=== PATIENT | female | born 1995 | race African-American/Black ===

== ENCOUNTER 2020-10-06 08:41 | Emergency (ER) | payer OTHER ==
[~2020-10-06] VITALS: Ht 170.2 cm; Wt 60.0 kg
[2020-10-06] MEDS ORDERED: MORPHINE SULFATE 4 MG/ML CPJ (NOT FOR IM USE) IV STA (08:54)
[2020-10-06] MEDS ORDERED: ONDANSETRON HCL 4MG/2ML INJ IV STA (08:54)
[2020-10-06] MEDS ORDERED: SODIUM CHLORIDE 0.9% 1,000 ML IV ONE (09:00)
[2020-10-06] MEDS ORDERED: LORAZEPAM 2MG/ML CPJ IV ONE (09:00)
[2020-10-06 09:30] LABS: BASOPHILS % 0.5 % (0.0-2.0); HEMATOCRIT. 38.7 % (36.0-48.0); LYMPHOCYTES % 47.2 % (20.0-50.0); MEAN CORPUSCULAR HEMOGLOBIN 32.9 pg (28.0-32.0); MEAN CORPUSCULAR VOLUME 98.2 fL (81.0-99.0); MEAN PLATELET VOLUME 8.2 fl (7.4-10.4); MONOCYTES % 7.5 % (2.0-8.0); NEUTROPHILS % 43.8 % (40.0-76.0); PLATELET 236 x1000/uL (130-400); RED BLOOD CELL COUNT 3.94 mill/uL (4.2-5.4); RED CELL DISTRIBUTION WIDTH 14.3 % (11.6-14.6)
[2020-10-06 09:36] LABS: CHLORIDE 105 mEq/L (98-107)
[2020-10-06 09:41] LABS: ETHANOL BLOOD < 10 mg/dL
[2020-10-06 09:43] LABS: HCG SCREEN NEGATIVE
[2020-10-06] MEDS ORDERED: MORPHINE SULFATE 4 MG/ML CPJ (NOT FOR IM USE) IV ONE (10:15)
[2020-10-06] MEDS ORDERED: KETOROLAC 30MG/ML VIAL IV ONE (10:15)
[2020-10-06 10:41] VITALS: BP 134/76
== END 2020-10-06 10:58 | disposition left against medical advice (07) ==
LOC: ER 08:41
DX: R07.9 Chest pain, unspecified (principal); M41.9 Scoliosis, unspecified
CPT/HCPCS: 36415; 71045; 80053; 80320; 83690; 83880; 84484; 84703; 85025; 93005; 96361; 96374; 96375; 99285; J2060; J2270; J2405; J7030; G0480